=== PATIENT | female | born 1960 | race Caucasian/White ===

== ENCOUNTER 2020-11-30 10:02 | Outpatient (RCR) | payer OTHER, SELFPAY ==
[2020-10-24 13:48] LABS: Basophils Absolute Auto 0.09 K/mm3 (0.00-0.10); Basophils Percent Auto 0.7 % (0.0-1.0); Eosinophils Absolute Auto 0.33 K/mm3 (0.02-0.50); Eosinophils Percent Auto 2.7 % (1.0-6.0); Hemoglobin 12.6 g/dL (12.0-15.0); Immature Granulocyte Absolute 0.04 K/mm3 (0.00-0.00); Immature Granulocyte Percent A 0.3 % (0.0-0.0); Immature Platelet Fraction Pct 1.6 % (1.0-7.0); Lymphocytes Absolute Auto 3.15 K/mm3 (1.10-4.50); Lymphocytes Percent Auto 25.6 % (18.0-42.0); Mean Corpuscular Hemoglobin 23.4 pg (27.0-31.0); Mean Corpuscular Volume 77.9 fL (78.0-102.0); Mean Platelet Volume 10.1 fl (9.2-11.8); Monocytes Absolute Auto 0.86 K/mm3 (0.10-0.90); Neutrophils Absolute Auto 7.8 K/mm3 (1.7-7.2); Neutrophils Percent Auto 63.7 % (50.0-70.0); Platelet Count Result 270 K/mm3 (150-420); Red Blood Count 5.39 M/mm3 (4.20-5.40); Red Cell Distribution Width 18.6 % (11.6-14.4); White Blood Count 12.3 K/mm3 (4.8-10.8)
[2020-10-24 14:06] LABS: Alanine Aminotransferase 26 U/L (14-59); Albumin Level 3.4 g/dL (3.4-5.0); Alkaline Phosphatase 88 U/L (46-116); Anion Gap 10 mmol/L (8-16); Aspartate Amino Transferase 26 U/L (15-37); Bilirubin,Total 0.5 mg/dL (0.00-1.00); Blood Urea Nitrogen 14 mg/dL (7-18); CRP 1.6 mg/dL (0.0-0.9); Carbon Dioxide 27 mmol/L (21-32); Chloride 103 mmol/L (98-108); Estimated Glomerular Filt Rate > 60; Glucose 109 mg/dL (70-99); Osmolality Calculated 291 mOsm/kg (285-295); Potassium 4.8 mmol/L (3.5-5.1); Sodium 140 mmol/L (136-145); Total Protein 7.8 g/dL (6.4-8.2)
[2020-10-24 14:07] VITALS: BP 130/88; PULSE 68; RESP 16; TEMP 36.6; O2SAT 98
[2020-10-24 14:08] VITALS: BMI 46.5
--- NOTE | 2020-10-24 14:09 | PC.NURSE ---
Patient here for daily Ceftriaxone 2 gm IV infusion daily until 2019 via patent picc line in upper left arm. All education given on med and hospital environment done. No concerns voiced. Weekly Saturday labs drawn and results faxed to Dr. Moreno AT [facility]. Tolerated infusion well. Safe exit of hospital. Will return tomorrow.
[2020-10-24] MEDS: HEPARIN SOD FLUSH 500 UNITS/5 ML SYRINGE IV PUSH (14:17)
[2020-10-24 14:47] LABS: Erythrocyte Sedimentation Rate 8 mm/hr (0-20)
[2020-10-25] MEDS: HEPARIN SOD FLUSH 500 UNITS/5 ML SYRINGE IV PUSH (09:32)
[2020-10-26] MEDS: HEPARIN SOD FLUSH 500 UNITS/5 ML SYRINGE IV PUSH (10:27)
--- NOTE | 2020-10-26 10:28 | PC.NURSE ---
Patient here for daily Ceftriaxone IV via patent picc line in left upper arm. No concerns voiced today. Ceftriaxone administered. Tolerated well. Safe exit of hospital. Will return tomorrow.
[2020-10-27 09:24] VITALS: BP 130/75; PULSE 72; RESP 16; TEMP 36.6; O2SAT 97
--- NOTE | 2020-10-27 09:25 | PC.NURSE ---
Patient here for daily Ceftriaxone IV infusion via patent picc line. No concerns voiced. IV med administered without difficulty. Safe exit of hospital. Will return tomorrow.
[2020-10-28] MEDS: HEPARIN SOD FLUSH 500 UNITS/5 ML SYRINGE IV PUSH (10:17)
--- NOTE | 2020-10-28 10:18 | PC.NURSE ---
Patient here for daily Ceftriaxone IV infusion via patent picc line. Dressing change on left upper arm picc double lumen due to be change. Dressing change done. Site asystomatic of s/sx of infection. Tolerated IV infusion well. NO concerns voiced. Will return tomorrow.
[2020-10-29] MEDS: HEPARIN SOD FLUSH 500 UNITS/5 ML SYRINGE IV PUSH (09:41)
[2020-10-30] MEDS: HEPARIN SOD FLUSH 500 UNITS/5 ML SYRINGE IV PUSH (08:55)
[2020-10-31 10:14] VITALS: BP 128/77; PULSE 72; RESP 14; TEMP 36.3; O2SAT 96
[2020-10-31] MEDS: HEPARIN SOD FLUSH 500 UNITS/5 ML SYRINGE IV PUSH (10:16)
--- NOTE | 2020-10-31 10:18 | PC.NURSE ---
Patient here for daily Ceftriaxone IV infusion. No concerns voiced. Weekly labs drawn from patent picc line and sent to lab. Ceftriaxone administered. Tolerated well. Safe exit of hospital.
[2020-10-31 10:27] LABS: Basophils Absolute Auto 0.11 K/mm3 (0.00-0.10); Basophils Percent Auto 1.1 % (0.0-1.0); Eosinophils Absolute Auto 0.47 K/mm3 (0.02-0.50); Eosinophils Percent Auto 4.9 % (1.0-6.0); Hematocrit 42.9 % (35.0-49.0); Hemoglobin 12.5 g/dL (12.0-15.0); Immature Granulocyte Absolute 0.05 K/mm3 (0.00-0.00); Immature Granulocyte Percent A 0.5 % (0.0-0.0); Lymphocytes Percent Auto 29.1 % (18.0-42.0); Mean Corpuscular HGB Conc 29.1 g/dL (32.0-36.0); Mean Corpuscular Hemoglobin 23.1 pg (27.0-31.0); Mean Corpuscular Volume 79.2 fL (78.0-102.0); Mean Platelet Volume 10.2 fl (9.2-11.8); Monocytes Absolute Auto 0.68 K/mm3 (0.10-0.90); Monocytes Percent Auto 7.1 % (2.0-11.0); Neutrophils Absolute Auto 5.5 K/mm3 (1.7-7.2); Neutrophils Percent Auto 57.3 % (50.0-70.0); Platelet Count Result 373 K/mm3 (150-420); Red Blood Count 5.42 M/mm3 (4.20-5.40); Red Cell Distribution Width 18.8 % (11.6-14.4); White Blood Count 9.6 K/mm3 (4.8-10.8)
[2020-10-31 10:46] LABS: Alanine Aminotransferase 18 U/L (14-59); Albumin Level 3.4 g/dL (3.4-5.0); Alkaline Phosphatase 79 U/L (46-116); Anion Gap 8 mmol/L (8-16); Aspartate Amino Transferase 19 U/L (15-37); Bilirubin,Total 0.4 mg/dL (0.00-1.00); Blood Urea Nitrogen 15 mg/dL (7-18); CRP 0.7 mg/dL (0.0-0.9); Calcium 8.7 mg/dL (8.5-10.1); Carbon Dioxide 29 mmol/L (21-32); Chloride 106 mmol/L (98-108); Estimated CRCL calculation 84 ml/min; Estimated Glomerular Filt Rate > 60; Glucose 100 mg/dL (70-99); Osmolality Calculated 296 mOsm/kg (285-295); Sodium 143 mmol/L (136-145); Total Protein 7.7 g/dL (6.4-8.2)
[2020-10-31 11:30] LABS: Erythrocyte Sedimentation Rate 18 mm/hr (0-20)
[2020-11-01] MEDS: HEPARIN SOD FLUSH 500 UNITS/5 ML SYRINGE IV PUSH (10:05)
--- NOTE | 2020-11-01 10:46 | PC.NURSE ---
Patient tolerated daily Cefetriaxone IV infusion via patent picc line. NO concerns voiced. Tolerated well. Safe exit of hospital. Will return tomorrow.
[2020-11-02] MEDS: HEPARIN SOD FLUSH 500 UNITS/5 ML SYRINGE IV PUSH (10:23)
--- NOTE | 2020-11-02 10:25 | PC.NURSE ---
Patient tolerated daily Ceftriaxone IV infusion well via patent picc line. No conerns voiced. Safe exit of hospital. Will return tomorrow.
[2020-11-03 08:11] VITALS: BP 120/71; PULSE 72; RESP 14; TEMP 36.3; O2SAT 98
--- NOTE | 2020-11-03 08:21 | PC.NURSE ---
Patient tolerated daily IV Ceftriaxone via patent picc line. No concerns. After this leaving here is going to see orthopedic to get stitches removed and very happy about that. Will return tomorrow.
[2020-11-03] MEDS: HEPARIN SOD FLUSH 500 UNITS/5 ML SYRINGE IV PUSH (08:49)
--- NOTE | 2020-11-04 09:45 | PC.NURSE ---
Pt to room 201 amb per self. A&Ox3. Has no concerns or complaints. Oriented to room. Call lewis in reach. Reminded to call with needs.
[2020-11-04] MEDS: HEPARIN SOD FLUSH 500 UNITS/5 ML SYRINGE IV PUSH (09:59)
--- NOTE | 2020-11-04 10:10 | PC.NURSE ---
Pt to room 201 amb per self. A&Ox3. Has no questions or complaints. Oriented to room. Call lewis in reach. Reminded to call with needs.
--- NOTE | 2020-11-04 10:45 | PC.NURSE ---
PICC line dressing removed. Site without redness, edema or drainage. Site cleansed with chloroprep. New Sorbasheild dressing placed. Pt tolerated well. Has no questions or complaints. Discharged to home amb per self.
--- NOTE | 2020-11-05 09:50 | PC.NURSE ---
Patient here for daily Ceftriaxone via patent picc line. No concerns voiced. Ceftriaxone administered. see MAR. Tolerating well. Safe exit of hosptial.
[2020-11-05] MEDS: HEPARIN SOD FLUSH 500 UNITS/5 ML SYRINGE IV PUSH (10:12)
--- NOTE | 2020-11-06 09:58 | PC.NURSE ---
Patient tolerated daily Ceftriaxone IV infusion well via patent picc line. No concerns voiced. Safe exit of hospital. Will return tomorrow.
[2020-11-06] MEDS: HEPARIN SOD FLUSH 500 UNITS/5 ML SYRINGE IV PUSH (10:00)
[2020-11-07 09:42] LABS: Basophils Absolute Auto 0.12 K/mm3 (0.00-0.10); Basophils Percent Auto 1.3 % (0.0-1.0); Eosinophils Absolute Auto 0.44 K/mm3 (0.02-0.50); Eosinophils Percent Auto 4.9 % (1.0-6.0); Hematocrit 40.6 % (35.0-49.0); Hemoglobin 12.3 g/dL (12.0-15.0); Immature Granulocyte Absolute 0.03 K/mm3 (0.00-0.00); Immature Granulocyte Percent A 0.3 % (0.0-0.0); Lymphocytes Percent Auto 35.9 % (18.0-42.0); Mean Corpuscular HGB Conc 30.3 g/dL (32.0-36.0); Mean Corpuscular Hemoglobin 23.7 pg (27.0-31.0); Mean Corpuscular Volume 78.1 fL (78.0-102.0); Mean Platelet Volume 9.7 fl (9.2-11.8); Monocytes Absolute Auto 0.61 K/mm3 (0.10-0.90); Monocytes Percent Auto 6.8 % (2.0-11.0); Neutrophils Absolute Auto 4.5 K/mm3 (1.7-7.2); Neutrophils Percent Auto 50.8 % (50.0-70.0); Platelet Count Result 351 K/mm3 (150-420); Red Cell Distribution Width 18.6 % (11.6-14.4); White Blood Count 8.9 K/mm3 (4.8-10.8)
[2020-11-07 09:45] VITALS: BP 128/69; PULSE 72; RESP 14; TEMP 36.5; O2SAT 97
--- NOTE | 2020-11-07 09:46 | PC.NURSE ---
Patient here for daily Ceftriaxone IV infusion via patent PICC line. Weekly labs drawn and sent to lab. Lab will fax to Dr. Moreno. Ceftriaxone administered. Tolerated well. Safe exit of hospital. Will return tomorrow.
[2020-11-07 10:00] LABS: Alanine Aminotransferase 13 U/L (14-59); Albumin Level 3.2 g/dL (3.4-5.0); Alkaline Phosphatase 79 U/L (46-116); Anion Gap 9 mmol/L (8-16); Aspartate Amino Transferase 17 U/L (15-37); Bilirubin,Total 0.2 mg/dL (0.00-1.00); Blood Urea Nitrogen 13 mg/dL (7-18); CRP < 0.5 mg/dL (0.0-0.9); Calcium 8.6 mg/dL (8.5-10.1); Carbon Dioxide 26 mmol/L (21-32); Chloride 105 mmol/L (98-108); Estimated CRCL calculation 88 ml/min; Estimated Glomerular Filt Rate > 60; Glucose 92 mg/dL (70-99); Osmolality Calculated 290 mOsm/kg (285-295); Potassium 4.2 mmol/L (3.5-5.1); Sodium 140 mmol/L (136-145); Total Protein 7.3 g/dL (6.4-8.2)
[2020-11-07] MEDS: HEPARIN SOD FLUSH 500 UNITS/5 ML SYRINGE IV PUSH (10:09)
[2020-11-07 10:49] LABS: Erythrocyte Sedimentation Rate 24 mm/hr (0-20)
--- NOTE | 2020-11-08 09:20 | PC.NURSE ---
Here for OP abx therapy
[2020-11-08] MEDS: HEPARIN SOD FLUSH 500 UNITS/5 ML SYRINGE IV PUSH (09:34)
--- NOTE | 2020-11-08 10:10 | PC.NURSE ---
infused, tolerated well, flushed picc line per protocol, discharge to home ambulatory
--- NOTE | 2020-11-09 10:20 | PC.NURSE ---
Patient here daily Ceftriaxone IV infusion. NO concerns voiced. IV infusion administered. Tolerated well. Safe exit of hospital Be back tomorrow.
[2020-11-09] MEDS: HEPARIN SOD FLUSH 500 UNITS/5 ML SYRINGE IV PUSH (10:25)
--- NOTE | 2020-11-10 09:35 | PCDIET ---
Pt to room 201 amb per self. A&Ox3. Has no questions or concerns. Oriented to room, call lewis in reach. Reminded to call with needs.
[2020-11-10] MEDS: HEPARIN SOD FLUSH 500 UNITS/5 ML SYRINGE IV PUSH (10:20)
[2020-11-11] MEDS: HEPARIN SOD FLUSH 500 UNITS/5 ML SYRINGE IV PUSH (10:12)
--- NOTE | 2020-11-11 10:34 | PC.NURSE ---
1000 Patient here for daily Ceftriaxone IV infusion via patent Picc line. NO concerns voiced. Picc line dressing change due to be change and was changed. Site asystomatic of s/sx of infection. IV infusion administered. Tolerated well. Safe exit of hospital. Will return tomorrow.
[2020-11-12] MEDS: HEPARIN SOD FLUSH 500 UNITS/5 ML SYRINGE IV PUSH (09:17)
[2020-11-13] MEDS: HEPARIN SOD FLUSH 500 UNITS/5 ML SYRINGE IV PUSH (09:23)
--- NOTE | 2020-11-14 10:00 | PC.NURSE ---
Patient here to receive IV Ceftriaxone. Patient to have labs drawn today, labs drawn from PICC line. Pt. tolerated well. Patient sitting up in chair resting. PICC line dressing to left upper arm dry and intact. Call light and belongings at side.
[2020-11-14] MEDS: HEPARIN SOD FLUSH 500 UNITS/5 ML SYRINGE IV PUSH (10:08)
[2020-11-14 10:12] LABS: Basophils Absolute Auto 0.09 K/mm3 (0.00-0.10); Basophils Percent Auto 0.9 % (0.0-1.0); Eosinophils Absolute Auto 0.39 K/mm3 (0.02-0.50); Hemoglobin 12.4 g/dL (12.0-15.0); Immature Granulocyte Absolute 0.04 K/mm3 (0.00-0.00); Immature Granulocyte Percent A 0.4 % (0.0-0.0); Lymphocytes Absolute Auto 2.63 K/mm3 (1.10-4.50); Lymphocytes Percent Auto 27.3 % (18.0-42.0); Mean Corpuscular HGB Conc 30.2 g/dL (32.0-36.0); Mean Corpuscular Hemoglobin 23.7 pg (27.0-31.0); Mean Corpuscular Volume 78.4 fL (78.0-102.0); Mean Platelet Volume 9.7 fl (9.2-11.8); Monocytes Absolute Auto 0.74 K/mm3 (0.10-0.90); Monocytes Percent Auto 7.7 % (2.0-11.0); Neutrophils Absolute Auto 5.8 K/mm3 (1.7-7.2); Neutrophils Percent Auto 59.7 % (50.0-70.0); Platelet Count Result 399 K/mm3 (150-420); Red Blood Count 5.23 M/mm3 (4.20-5.40); Red Cell Distribution Width 19.1 % (11.6-14.4); White Blood Count 9.7 K/mm3 (4.8-10.8)
[2020-11-14 10:28] LABS: Alanine Aminotransferase 25 U/L (14-59); Albumin Level 3.4 g/dL (3.4-5.0); Alkaline Phosphatase 84 U/L (46-116); Anion Gap 11 mmol/L (8-16); Aspartate Amino Transferase 27 U/L (15-37); Bilirubin,Total 0.5 mg/dL (0.00-1.00); Blood Urea Nitrogen 14 mg/dL (7-18); CRP < 0.5 mg/dL (0.0-0.9); Calcium 8.8 mg/dL (8.5-10.1); Carbon Dioxide 26 mmol/L (21-32); Chloride 106 mmol/L (98-108); Estimated CRCL calculation 78 ml/min; Estimated Glomerular Filt Rate > 60; Glucose 98 mg/dL (70-99); Osmolality Calculated 296 mOsm/kg (285-295); Sodium 143 mmol/L (136-145); Total Protein 7.7 g/dL (6.4-8.2)
--- NOTE | 2020-11-14 10:40 | PC.NURSE ---
Patient tolerated IV ATB infusion well. Port site flushed well. Dressing remains intact. Pt. denies any questions at present. Patient will return in morning for consecutive dose of ATB. Left ambulatory.
[2020-11-14 11:16] LABS: Erythrocyte Sedimentation Rate 26 mm/hr (0-20)
[2020-11-15] MEDS: HEPARIN SOD FLUSH 500 UNITS/5 ML SYRINGE IV PUSH (10:42)
--- NOTE | 2020-11-15 10:44 | PC.NURSE ---
Tolerated daily IV Ceftriaxone infusion via picc line well. Patient wanted dressing change r/t getting it wet this a.m. Dressing to picc line and caps changed. Site asystomatic of s/sx of infection. Safe exit of hospital. Will be back tomorrow.
[2020-11-16] MEDS: HEPARIN SOD FLUSH 500 UNITS/5 ML SYRINGE IV PUSH (09:54)
--- NOTE | 2020-11-16 09:55 | PC.NURSE ---
Patient tolerated daily IV antibiotic infusion via patent picc line. No concerns at this time. Safe exit of hospital.
[2020-11-17] MEDS: HEPARIN SOD FLUSH 500 UNITS/5 ML SYRINGE IV PUSH (10:55)
--- NOTE | 2020-11-17 10:55 | PC.NURSE ---
Patient here for daily IV antibiotic via patent picc line. NO concerns voiced. Tolerated well. Safe exit of hospital. Return tomorrow.
[2020-11-18] MEDS: HEPARIN SOD FLUSH 500 UNITS/5 ML SYRINGE IV PUSH (09:52)
--- NOTE | 2020-11-18 15:35 | PC.NURSE ---
1020 Tolerated daily IV Ceftriaxone well via patent picc. NO concerns voiced. Safe exit of hosptial. Will return tomorrow.
[2020-11-19] MEDS: HEPARIN SOD FLUSH 500 UNITS/5 ML SYRINGE IV PUSH (09:36)
--- NOTE | 2020-11-19 10:20 | PC.NURSE ---
Patient here for IV ATB. Patient given ATB via PICC line. PICC line flushed well, good blood return received. PICC dressing removed, site cleaned well and new dressing applied. Patient tolerated well. Patient denies any questions at discharge. Left ambulatory.
--- NOTE | 2020-11-20 10:10 | PC.NURSE ---
Patient here for IV ATB. PICC line flushed well. Good blood return received. PICC dressing site dry and intact. Patient tolerated infusion well. Denies any questions or concerns. Patient left ambulatory.
[2020-11-21] MEDS: HEPARIN SOD FLUSH 500 UNITS/5 ML SYRINGE IV PUSH (09:28)
--- NOTE | 2020-11-21 09:30 | PC.NURSE ---
Patient here to received IV ATB. PICC line flushed well. Dressing clean dry and intact. Labs drawn from PICC line prior to starting IV ATB. PICC site has good blood return. IV ATB running per order. Patient denies any needs, sitting up in chair resting. Call light and belongings at side.
[2020-11-21 09:38] LABS: Basophils Absolute Auto 0.08 K/mm3 (0.00-0.10); Hematocrit 38.5 % (35.0-49.0); Hemoglobin 11.6 g/dL (12.0-15.0); Immature Granulocyte Absolute 0.02 K/mm3 (0.00-0.00); Immature Granulocyte Percent A 0.3 % (0.0-0.0); Mean Corpuscular HGB Conc 30.1 g/dL (32.0-36.0); Mean Corpuscular Hemoglobin 24.1 pg (27.0-31.0); Monocytes Absolute Auto 0.75 K/mm3 (0.10-0.90); Monocytes Percent Auto 9.4 % (2.0-11.0); Neutrophils Percent Auto 50.3 % (50.0-70.0); Platelet Count Result 343 K/mm3 (150-420); Red Blood Count 4.81 M/mm3 (4.20-5.40); White Blood Count 7.9 K/mm3 (4.8-10.8)
[2020-11-21 10:04] LABS: Alanine Aminotransferase 22 U/L (14-59); Albumin Level 3.3 g/dL (3.4-5.0); Alkaline Phosphatase 76 U/L (46-116); Anion Gap 9 mmol/L (8-16); Aspartate Amino Transferase 17 U/L (15-37); Bilirubin,Total 0.3 mg/dL (0.00-1.00); Blood Urea Nitrogen 15 mg/dL (7-18); CRP < 0.5 mg/dL (0.0-0.9); Carbon Dioxide 27 mmol/L (21-32); Chloride 104 mmol/L (98-108); Estimated CRCL calculation 76 ml/min; Estimated Glomerular Filt Rate > 60; Glucose 97 mg/dL (70-99); Osmolality Calculated 290 mOsm/kg (285-295); Potassium 5.2 mmol/L (3.5-5.1); Sodium 140 mmol/L (136-145); Total Protein 7.2 g/dL (6.4-8.2)
[2020-11-21 10:59] LABS: Erythrocyte Sedimentation Rate 28 mm/hr (0-20)
[2020-11-22] MEDS: HEPARIN SOD FLUSH 500 UNITS/5 ML SYRINGE IV PUSH (10:49)
[2020-11-22 10:51] VITALS: BP 126/75; PULSE 72; RESP 14; TEMP 36.6; O2SAT 97
--- NOTE | 2020-11-22 10:52 | PC.NURSE ---
Patient tolerated daily IV Ceftriaxone infusion via patent picc line. No concerns voiced. Will return tomorrow. Labs were drawn Wednesday 11/21 faxed to [facility] as ordered.
--- NOTE | 2020-11-23 09:20 | PC.NURSE ---
Here for OP IV therapy
[2020-11-23] MEDS: HEPARIN SOD FLUSH 500 UNITS/5 ML SYRINGE IV PUSH (09:30)
--- NOTE | 2020-11-23 10:10 | PC.NURSE ---
infusion complete, PICC line flushed per protocol, discharge to home ambulatory
--- NOTE | 2020-11-24 10:24 | PC.NURSE ---
Patient tolerated daily Ceftriaxone IV infusion well. No concerns. Safe exit of hospital. Will return tomorrow.
[2020-11-24] MEDS: HEPARIN SOD FLUSH 500 UNITS/5 ML SYRINGE IV PUSH (10:26)
[2020-11-25] MEDS: HEPARIN SOD FLUSH 500 UNITS/5 ML SYRINGE IV PUSH (09:45)
[2020-11-26] MEDS: HEPARIN SOD FLUSH 500 UNITS/5 ML SYRINGE IV PUSH (09:18)
[2020-11-27] MEDS: HEPARIN SOD FLUSH 500 UNITS/5 ML SYRINGE IV PUSH (09:56)
--- NOTE | 2020-11-28 09:30 | PC.NURSE ---
Here for outpatient abx therapy, lab notified, unable to draw weekly lab from PICC line, flushes well, no swelling or pain noted
[2020-11-28] MEDS: HEPARIN SOD FLUSH 500 UNITS/5 ML SYRINGE IV PUSH (09:40)
[2020-11-28 09:46] LABS: Basophils Absolute Auto 0.09 K/mm3 (0.00-0.10); Basophils Percent Auto 1.2 % (0.0-1.0); Eosinophils Absolute Auto 0.33 K/mm3 (0.02-0.50); Eosinophils Percent Auto 4.3 % (1.0-6.0); Hematocrit 37.7 % (35.0-49.0); Hemoglobin 11.3 g/dL (12.0-15.0); Immature Granulocyte Absolute 0.03 K/mm3 (0.00-0.00); Immature Granulocyte Percent A 0.4 % (0.0-0.0); Lymphocytes Absolute Auto 2.56 K/mm3 (1.10-4.50); Lymphocytes Percent Auto 33.6 % (18.0-42.0); Mean Corpuscular Hemoglobin 24.1 pg (27.0-31.0); Mean Corpuscular Volume 80.4 fL (78.0-102.0); Mean Platelet Volume 9.6 fl (9.2-11.8); Monocytes Percent Auto 9.2 % (2.0-11.0); Neutrophils Absolute Auto 3.9 K/mm3 (1.7-7.2); Neutrophils Percent Auto 51.3 % (50.0-70.0); Platelet Count Result 352 K/mm3 (150-420); Red Blood Count 4.69 M/mm3 (4.20-5.40); Red Cell Distribution Width 18.7 % (11.6-14.4); White Blood Count 7.6 K/mm3 (4.8-10.8)
[2020-11-28 10:13] LABS: Alanine Aminotransferase 22 U/L (14-59); Albumin Level 3.3 g/dL (3.4-5.0); Alkaline Phosphatase 82 U/L (46-116); Anion Gap 8 mmol/L (8-16); Aspartate Amino Transferase 19 U/L (15-37); Bilirubin,Total 0.3 mg/dL (0.00-1.00); Blood Urea Nitrogen 19 mg/dL (7-18); CRP 0.8 mg/dL (0.0-0.9); Calcium 8.7 mg/dL (8.5-10.1); Carbon Dioxide 27 mmol/L (21-32); Chloride 106 mmol/L (98-108); Estimated CRCL calculation 68 ml/min; Estimated Glomerular Filt Rate > 60; Glucose 122 mg/dL (70-99); Osmolality Calculated 295 mOsm/kg (285-295); Potassium 3.9 mmol/L (3.5-5.1); Sodium 141 mmol/L (136-145); Total Protein 7.1 g/dL (6.4-8.2)
--- NOTE | 2020-11-28 10:16 | PC.NURSE ---
infusion complete, picc line flushed, tolerated well, discharge to home
[2020-11-28 10:45] LABS: Erythrocyte Sedimentation Rate 22 mm/hr (0-20)
[2020-11-29] MEDS: HEPARIN SOD FLUSH 500 UNITS/5 ML SYRINGE IV PUSH (10:15)
--- NOTE | 2020-11-29 10:32 | PC.NURSE ---
Patient tolerated daily IV Ceftriaxone via patent picc line. NO concerns voiced. Safe exit of hospital. Will return tomorrow for last one.
--- NOTE | 2020-11-30 10:00 | PC.NURSE ---
Here for OP IV abx therapy
[2020-11-30] MEDS: HEPARIN SOD FLUSH 500 UNITS/5 ML SYRINGE IV PUSH (10:15)
--- NOTE | 2020-11-30 10:50 | PC.NURSE ---
Abx infused, PICC line flushed per protocol, discharged ambulatory to home
== END 2021-01-22 23:59 | disposition home or self-care (01) ==
LOC: CHSTREATRM 10:02
PROVIDERS: PCP Family Medicine; Visit Provider Internal Medicine Infectious Disease
DX: M86.9 Osteomyelitis, unspecified (principal)
CPT/HCPCS: 36415; 80053; 85025; 85055; 85652; 86140; 96365; J0696